=== PATIENT | female | born 1955 | race Caucasian/White ===

== ENCOUNTER → 2016-12-10 | Outpatient (CLI) | payer BC ==
[~2016-12-10] MED LIST: DILT180C53 PO; HYG/25 PO; PARO20TA PO; [UNRECOGNIZED DRUG - OTHER] PO; [UNRECOGNIZED DRUG - OTHER] PO
--- NOTE | 2016-12-11 08:01 | MAMMOGRAPHY REPORT ---
BILATERAL DIGITAL SCREENING MAMMOGRAM TOMOSYNTHESIS WITH CAD: 12/10/2016 CLINICAL HISTORY: Routine screening examination. TECHNIQUE: Breast tomosynthesis in addition to standard 2D mammography was performed. Current study was also evaluated with a Computer Aided Detection (CAD) system. COMPARISON: Comparison is made to exams dated: 12/08/2015 mammogram, 12/01/2014 mammogram, 11/30/2013 m ammogram, and 11/28/2012 mammogram - [facility]. BREAST COMPOSITION: There are scattered areas of fibroglandular density in both breasts. FINDINGS: There are a few stable benign-appearing microcalcifications in the breasts. Stable asymme try in the 12:00 anterior left breast and a stable intramammary lymph node in the upper outer seed district sales manager ior right breast. No suspicious mass, architectural distortion or cluster of suspicious microcalcif ications is seen. IMPRESSION: ACR BI-RADS CATEGORY 1: NEGATIVE There is no mammographic evidence of malignancy. A 1 year screening mammogram is recommended. The p atient will receive written notification of the results. Approximately 10% of breast cancers are not detected with mammography. A negative mammographic repor t should not delay biopsy if a clinically suggestive mass is present. Malgorzata Ibarra M.D. ay/:12/10/2016 21:32:13 Celebrity Manager: Brisa JAIN)(M), [facility] letter sent: Normal 1/2 BI-RADS Code: ACR BI-RADS Category 1: Negative
== END | disposition home or self-care (01) ==
LOC: C.MAMM 08:56
PROVIDERS: ATTEND Obstetrics & Gynecology
DX: Z12.31 Encounter for screening mammogram for malignant neoplasm of breast (principal)

== ENCOUNTER 2017-02-05 11:04 | Emergency (ER) | payer BC ==
[~2017-02-05] VITALS: Ht 165.1 cm; Wt 73.1 kg
[~2017-02-05 11:04] MED LIST changes: -HYG/25 PO
[2017-02-05 11:08] VITALS: TEMP 36.6; Ht 165.1 cm; Wt 73.1 kg
[2017-02-05] MEDS ORDERED: SODIUM CHLORIDE 0.9% 1000ML 1,000 ML IV STA (11:28)
[2017-02-05 11:59] LABS: BASO % 0.4 %; BASO ABS # 0.02 K/uL (0-0.2); COMPLETE YES; EOS % 1.9 %; HEMATOCRIT 40.6 % (37-47); IG% 0.2 %; LYMPH ABS # 1.71 K/uL (1.2-3.4); MEAN CELL VOLUME 93.5 fL (80-100); MEAN CORPUSCULAR HEMOGLOBIN 32.7 pg (25-34); MEAN PLATELET VOLUME 10.3 fL (7.4-10.4); MONO % 5.8 %; NEUT % 61.7 %; PLATELET COUNT 261 K/uL (130-400); RED BLOOD COUNT 4.34 M/uL (4.2-5.4)
[2017-02-05] MEDS ORDERED: HYG/25 PO (12:02)
[2017-02-05 12:08] LABS: PARTIAL THROMBOPLASTIN RATIO 1.3; PROTHROMBIN TIME (PATIENT) 10.7 SECONDS (9.0-12.0)
--- NOTE | 2017-02-05 12:08 | DIAGNOSTIC IMAGING REPORT ---
SINGLE VIEW CHEST CLINICAL HISTORY: Generalized weakness. Change in mental status. FINDINGS: An AP, portable, upright chest radiograph is compared to study dated 01/04/2013. The examination is degraded by portable technique and patient rotation. The cardiomediastinal silhouette is unremarkable. The lungs and pleural spaces are clear. No pneumothorax is seen. The bony thorax is grossly intact. IMPRESSION: No active disease in the chest. Electronically signed by: Toro Thompson M.D. 02/05/2017 12:06 PM Dictated Date/Time: 02/05/2017 12:05 PM
[2017-02-05 12:14] LABS: URINE APPEARANCE CLEAR (CLEAR); URINE BILIRUBIN NEG (NEG); URINE COLOR YELLOW; URINE EPITHELIAL CELL AUTO 0-5 /lpf (0-5); URINE NITRITE NEG (NEG); URINE SPECIFIC GRAVITY 1.011 (1.000-1.030); UROBILINOGEN NEG (NEG); ZZUR CULT IF INDIC CLEAN CATCH NO
[2017-02-05 12:19] LABS: ALT/SGPT 28 U/L (12-78); AST/SGOT 20 U/L (15-37); BLOOD UREA NITROGEN 21 mg/dl (7-18); BUN/CREATININE RATIO 19.4 (10-20); CALCIUM 8.9 mg/dl (8.5-10.1); CARBON DIOXIDE 31 mmol/L (21-32); CHLORIDE 101 mmol/L (98-107); GLUCOSE 93 mg/dl (70-99); MAGNESIUM 2.1 mg/dl (1.8-2.4); POTASSIUM 3.3 mmol/L (3.5-5.1); SODIUM 138 mmol/L (136-145)
[2017-02-05 12:23] LABS: MANUAL MICROSCOPIC REQUIRED? NO; REVIEW REQ? NO
[2017-02-05 12:28] LABS: ALKALINE PHOSPHATASE 73 U/L (45-117); CKMB/CK RATIO 1.2 (0-3.0)
--- NOTE | 2017-02-05 13:16 | DIAGNOSTIC IMAGING REPORT ---
CT HEAD WITHOUT CONTRAST (CT) CLINICAL HISTORY: Altered mental status, weakness. Nausea. "FEELS LIKE MY HEAD IS GOING TO EXPLODE" COMPARISON STUDY: No previous studies for comparison. TECHNIQUE: Axial CT of the brain is performed from the vertex to the skull base. IV contrast was not administered for this examination. CT DOSE: 638.56 mGycm FINDINGS: No intra or extra-axial mass lesions are visualized. There is no CT evidence of acute cortical infarction. There is no evidence of midline shift. There is no acute hemorrhage. No calvarial fractures are visualized. There are minor white matter hypodensities likely on a small vessel basis. There is no evidence of pathologic ventricular dilatation. There is no evidence of acute sinusitis IMPRESSION: No acute intracranial findings Electronically signed by: Pete Whittaker M.D. 02/05/2017 1:15 PM Dictated Date/Time: 02/05/2017 1:14 PM
--- NOTE | 2017-02-05 13:32 | EMERGENCY ROOM VISIT NOTE ---
History Report prepared by Melchor: Deuce Peralta Under the Supervision of: Dr. Moses Lemus D.O. First contact with patient: 11:28 Chief Complaint: HYPOTENSION Stated Complaint: LOW BLOOD PRESSURE, ASKEW, HEAVY CHEST, NAUSEA History of Present Illness The patient is a 61 year old female who presents to the Emergency Room with complaints of persistent dizziness that started last week. She says that on the first onset of the dizziness, she would feel faint especially upon standing up. The patient notes that a persistent headache then started a few days ago, and she has been checking her blood pressure, which has been lower than usual. This morning, the patient woke up and felt like vomiting. She also notes some hand numbness. Last night, the patient could not sleep well due to the headache as well as some chest heaviness. She called her primary care physician, who scheduled an appointment with the patient. However, her physician called back and said to come here for evaluation. The patient has been taking Tylenol for the headache, with minimal relief. She denies any fevers, abdominal pain, or cough. The patient adds that she has been on a low carbohydrate diet for the past 3 months, and has not felt any of these symptoms until last week. Source of History: patient Onset: Last week Position: other (global - dizziness) Timing: other (persistent) Associated Symptoms: + headache, + numbness (in hands), No abdominal pain, No cough, No fevers Note: Associated symptoms: Low blood pressure, chest heaviness, felt like vomiting. Review of Systems See HPI for pertinent positives & negatives. A total of 10 systems reviewed and were otherwise negative. Past Medical & Surgical Medical Problems: (1) HTN (hypertension) Family History Diabetes mellitus Heart disease Hypertension Kidney disease Seizures Social History Smoking Status: Never Smoker Alcohol Use: none Marital Status: Housing Status: lives with family Occupation Status: employed Current/Historical Medications Scheduled Chlorthalidone (Hygroton), 25 MG PO DAILY Allergies Coded Allergies: Latex1 -Allergic Contact Dermititis (Verified Allergy, Unknown, LOCALIZED RASH, 02/05/17) Penicillins (Verified Allergy, Unknown, 02/05/17) Sulfa Antibiotics (Unverified Allergy, Unknown, rash, 02/05/17) Sulfamethoxazole w/Trimethoprim (Unverified Allergy, Unknown, UNKNOWN, 02/05) Physical Exam Vital Signs Date Time Temp Pulse Resp B/P Pulse Ox O2 Delivery O2 Flow Rate FiO2 02/05/17 14:02 54 20 110/72 99 02/05/17 13:14 54 18 119/67 99 Room Air 02/05/17 12:06 56 02/05/17 11:41 60 107/65 97 Room Air 69 118/72 66 106/73 02/05/17 11:08 36.6 63 18 116/76 99 Room Air Physical Exam CONSTITUTIONAL/VITAL SIGNS: Reviewed / noted above. GENERAL: Non-toxic in appearance. INTEGUMENTARY: Warm, dry, and [place]. HEAD: Normocephalic. EYES: without scleral icterus or trauma. ENT/OROPHARYNX: clear and moist. LYMPHADENOPATHY/NECK: Is supple without lymphadenopathy or meningismus. RESPIRATORY: Lungs clear and equal. CARDIOVASCULAR: Regular rate and rhythm. GI/ABDOMEN: Soft and nontender. No organomegaly or pulsatile mass. No rebound or guarding. Normal bowel sounds. EXTREMITIES: Warm and well perfused. BACK: No CVA tenderness. NEUROLOGICAL: Intact without focal deficits. PSYCHIATRIC: normal affect. MUSCULOSKELETAL: Normally developed with good muscle tone. Medical Decision & Procedures ER Provider Diagnostic Interpretation: Radiology results as stated below per my review and radiologist interpretation: CT HEAD WITHOUT CONTRAST (CT) CLINICAL HISTORY: Altered mental status, weakness. Nausea. "FEELS LIKE MY HEAD IS GOING TO EXPLODE" COMPARISON STUDY: No previous studies for comparison. TECHNIQUE: Axial CT of the brain is performed from the vertex to the skull base. IV contrast was not administered for this examination. CT DOSE: 638.56 mGycm FINDINGS: No intra or extra-axial mass lesions are visualized. There is no CT evidence of acute cortical infarction. There is no evidence of midline shift. There is no acute hemorrhage. No calvarial fractures are visualized. There are minor white matter hypodensities likely on a small vessel basis. There is no evidence of pathologic ventricular dilatation. There is no evidence of acute sinusitis IMPRESSION: No acute intracranial findings Electronically signed by: Pete Whittaker M.D. 02/05/2017 1:15 PM Dictated Date/Time: 02/05/2017 1:14 PM SINGLE VIEW CHEST CLINICAL HISTORY: Generalized weakness. Change in mental status. FINDINGS: An AP, portable, upright chest radiograph is compared to study dated 01/04/2013. The examination is degraded by portable technique and patient rotation. The cardiomediastinal silhouette is unremarkable. The lungs and pleural spaces are clear. No pneumothorax is seen. The bony thorax is grossly intact. IMPRESSION: No active disease in the chest. Electronically signed by: Toor Thompson M.D. 02/05/2017 12:06 PM Dictated Date/Time: 02/05/2017 12:05 PM Laboratory Results 02/05/17 11:40 Red Blood Count 4.34, Mean Corpuscular Volume 93.5, Mean Corpuscular Hemoglobin 32.7, Mean Corpuscular Hemoglobin Concent 35.0, Mean Platelet Volume 10.3, Neutrophils (%) (Auto) 61.7, Lymphocytes (%) (Auto) 30.0, Monocytes (%) (Auto) 5.8, Eosinophils (%) (Auto) 1.9, Basophils (%) (Auto) 0.4, Neutrophils # (Auto) 3.52, Lymphocytes # (Auto) 1.71, Monocytes # (Auto) 0.33, Eosinophils # (Auto) 0.11, Basophils # (Auto) 0.02 02/05/17 11:40 Test 02/05/17 11:40 02/05/17 11:50 White Blood Count 5.70 K/uL (4.8-10.8) Red Blood Count 4.34 M/uL (4.2-5.4) Hemoglobin 14.2 g/dL (12.0-16.0) Hematocrit 40.6 % (37-47) Mean Corpuscular Volume 93.5 fL (80-100) Mean Corpuscular Hemoglobin 32.7 pg (25-34) Mean Corpuscular Hemoglobin Concent 35.0 g/dl (32-36) Platelet Count 261 K/uL (130-400) Mean Platelet Volume 10.3 fL (7.4-10.4) Neutrophils (%) (Auto) 61.7 % Lymphocytes (%) (Auto) 30.0 % Monocytes (%) (Auto) 5.8 % Eosinophils (%) (Auto) 1.9 % Basophils (%) (Auto) 0.4 % Neutrophils # (Auto) 3.52 K/uL (1.4-6.5) Lymphocytes # (Auto) 1.71 K/uL (1.2-3.4) Monocytes # (Auto) 0.33 K/uL (0.11-0.59) Eosinophils # (Auto) 0.11 K/uL (0-0.5) Basophils # (Auto) 0.02 K/uL (0-0.2) RDW Standard Deviation 42.0 fL (36.4-46.3) RDW Coefficient of Variation 12.2 % (11.5-14.5) Immature Granulocyte % (Auto) 0.2 % Immature Granulocyte # (Auto) 0.01 K/uL (0.00-0.02) Prothrombin Time 10.7 SECONDS (9.0-12.0) Prothromb Time International Ratio 1.0 (0.9-1.1) Activated Partial Thromboplast Time 32.9 SECONDS (21.0-31.0) Partial Thromboplastin Ratio 1.3 Anion Gap 6.0 mmol/L (3-11) Est Creatinine Clear Calc Drug Dose 54.5 ml/min Estimated GFR () 63.2 Estimated GFR (Non- 54.5 BUN/Creatinine Ratio 19.4 (10-20) Calcium Level 8.9 mg/dl (8.5-10.1) Magnesium Level 2.1 mg/dl (1.8-2.4) Total Bilirubin 0.3 mg/dl (0.2-1) Direct Bilirubin 0.1 mg/dl (0-0.2) Aspartate Amino Transf (AST/SGOT) 20 U/L (15-37) Alanine Aminotransferase (ALT/SGPT) 28 U/L (12-78) Alkaline Phosphatase 73 U/L (45-117) Total Creatine Kinase 311 U/L (26-192) Creatine Kinase MB 3.6 ng/ml (0.5-3.6) Creatine Kinase MB Ratio 1.2 (0-3.0) Troponin I < 0.015 ng/ml (0-0.045) Total Protein 7.2 gm/dl (6.4-8.2) Albumin 3.7 gm/dl (3.4-5.0) Lipase 182 U/L (73-393) Thyroid Stimulating Hormone (TSH) 1.940 uIu/ml (0.300-4.500) Urine Color YELLOW Urine Appearance CLEAR (CLEAR) Urine pH 7.0 (4.5-7.5) Urine Specific [place] 1.011 (1.000-1.030) Urine Protein NEG (NEG) Urine Glucose (UA) NEG (NEG) Urine Ketones NEG (NEG) Urine Occult Blood NEG (NEG) Urine Nitrite NEG (NEG) Urine Bilirubin NEG (NEG) Urine Urobilinogen NEG (NEG) Urine Leukocyte Esterase NEG (NEG) Urine WBC (Auto) 0 /hpf (0-5) Urine RBC (Auto) 0-4 /hpf (0-4) Urine Hyaline Casts (Auto) 0 /lpf (0-5) Urine Epithelial Cells (Auto) 0-5 /lpf (0-5) Urine Bacteria (Auto) NEG (NEG) Laboratory results as stated above per my review. Medications Administered Medications (Trade) Dose Ordered Sig/Sean Route Start Time Stop Time Status Last Admin Dose Admin Sodium Chloride (Nss 1000ml) 1,000 ml @ 999 mls/hr Q1H1M STAT IV 02/05/17 11:28 02/05/17 12:28 DC 02/05/17 11:51 999 MLS/HR ECG Indication: other (dizziness) Rate (beats per minute): 58 Rhythm: sinus bradycardia Findings: T-wave inversion (Anterior) Change: no significant change (compared to January 04 2013) ED Course 1128: Ordered NSS 1000 ml @ 999 mls/hr IV. 1154: Previous medical records were reviewed. The patient was evaluated in room C5. A complete history and physical examination was performed. 1334: On reevaluation, the patient is resting comfortably. I discussed the results and findings with the patient. She verbalized agreement of the treatment plan. She was discharged home. Medical Decision Differential diagnosis: Etiologies such as benign positional vertigo, dehydration, hypovolemia, anemia, tumor, infection, hypoglycemia, electrolyte abnormalities, cardiac sources, intracerebral event, toxicologic, neurologic, as well as others were entertained. This is a 61-year-old female who presents to the ED with a chief complaint of dizziness on occasion over the last week. She also reports a headache that started over this weekend. She states that her blood pressure has been slightly low at home. This morning she felt nauseated and dizzy and came in for evaluation. She denies having any fevers or chills or recent illness. She does complain of a headache that is in the posterior aspect of the head and radiates to the top. The patient states that she has recently been on a diet with Dr. Aceves. She states that is a low-carb diet. Her vital signs are normal. Her physical exam was normal. Orthostatic vital signs are negative. EKG shows a sinus rhythm at a rate of 58. No acute injury. Chest x-ray did not show acute disease. A CT scan the brain did not show acute disease. CBC and complete metabolic panel are unremarkable. BUN was 21. Urine did not show infection or ketones. TSH was normal. The patient was treated with IV fluids. She did not want pain medication. She is felt to be stable for discharge and outpatient follow-up. Impression Primary Impression: Dizziness Additional Impressions: Dehydration Headache Scribe Attestation The scribe's documentation has been prepared under my direction and personally reviewed by me in its entirety. I confirm that the note above accurately reflects all work, treatment, procedures, and medical decision making performed by me. Departure Information Dispostion Home / Self-Care Referrals Rene Heath M.D. (PCP) Patient Instructions Dizziness Fainting Poss Causes, [facility] Additional Instructions Blood work suggests that you're slightly dehydrated. Increase daily fluid intake. Follow-up with your family doctor for recheck in 1-4 days. Return for worsening or new concerns. Problem Qualifiers
[2017-02-05 14:02] VITALS: BP 110/72; PULSE 54; O2SAT 99
== END 2017-02-05 14:03 | disposition home or self-care (01) ==
LOC: C.EDB 11:10 → C.EDC 14:03
DX: R42 Dizziness and giddiness (principal); E86.0 Dehydration; R51 Headache; I10 Essential (primary) hypertension; Z83.3 Family history of diabetes mellitus; Z82.49 Family history of ischemic heart disease and other diseases of the circulatory system; Z82.0 Family history of epilepsy and other diseases of the nervous system; Z79.899 Other long term (current) drug therapy

== ENCOUNTER → 2017-09-11 | Outpatient (CLI) | payer BC ==
[~2017-09-11] MED LIST changes: -DILT180C53 PO; +HYG/25 PO; -PARO20TA PO; -[UNRECOGNIZED DRUG - OTHER] PO; -[UNRECOGNIZED DRUG - OTHER] PO
--- NOTE | 2017-09-11 09:19 | DIAGNOSTIC IMAGING REPORT ---
(RENAL)RETROPERITON COMP HISTORY: 62 years-old Female URINARY INCONTINENCE acute right lower quadrant tenderness with hematuria COMPARISON: None available TECHNIQUE: Multiple real-time sonographic images of the kidneys and urinary bladder were obtained assessing grayscale appearance and color flow FINDINGS: The right kidney measures 9.5 cm in length and demonstrates no renal calculi or hydronephrosis. There are several right-sided renal cysts noted, largest of which measures 1.3 cm within the region of the renal sinus which may reflect a renal sinus cyst. Cortical medullary differentiation on the right is within normal limits. The left kidney measures up to 10.7 cm in length and also demonstrates multiple cysts, largest of which measures 1.1 cm within the superior pole. Only the right ureteral jet is documented. Urinary bladder is partially collapsed. The study is mildly limited secondary to bowel gas. IMPRESSION: 1. Limited study secondary to bowel gas. No renal calculi or hydronephrosis. 2. Bilateral renal cysts. 3. Partially collapsed urinary bladder. The above report was generated using voice recognition software. It may contain grammatical, syntax or spelling errors. Electronically signed by: Oneal Tamez M.D. 09/11/2017 9:18 AM Dictated Date/Time: 09/11/2017 9:15 AM
== END | disposition home or self-care (01) ==
LOC: C.ULTR 07:36
PROVIDERS: ATTEND Family Medicine
DX: R31.9 Hematuria, unspecified (principal); S76.011A Strain of muscle, fascia and tendon of right hip, initial encounter; X58.XXXA Exposure to other specified factors, initial encounter; I10 Essential (primary) hypertension; R32 Unspecified urinary incontinence

== ENCOUNTER → 2017-10-09 | Outpatient (CLI) | payer OTHER | END | disposition home or self-care (01) | LOC: C.PAPS 14:03 | PROVIDERS: ATTEND Obstetrics & Gynecology | DX: Z01.419 Encounter for gynecological examination (general) (routine) without abnormal findings (principal); Z78.0 Asymptomatic menopausal state ==

== ENCOUNTER → 2017-12-12 | Outpatient (CLI) | payer OTHER ==
--- NOTE | 2017-12-12 15:06 | MAMMOGRAPHY REPORT ---
BILATERAL DIGITAL SCREENING MAMMOGRAM TOMOSYNTHESIS WITH CAD: 12/12/2017 CLINICAL HISTORY: Routine screening. Patient has no complaints. TECHNIQUE: Breast tomosynthesis in addition to standard 2D mammography was performed. Current study was also evaluated with a Computer Aided Detection (CAD) system. COMPARISON: Comparison is made to exams dated: 12/10/2016 mammogram, 12/08/2015 mammogram, 12/01/2014 mesha mogram, 11/30/2013 mammogram, 11/28/2012 mammogram, and 11/23/2011 mammogram - [facility]. BREAST COMPOSITION: There are scattered areas of fibroglandular density in both breasts. FINDINGS: No suspicious masses, calcifications, or areas of architectural distortion are noted in ei ther breast. There has been no significant interval change compared to prior exams. Circumscribed be nign-appearing mass in the right upper outer quadrant is stable dating back to at least the 2008 exam and likely represents an intramammary lymph node. A few scattered bilateral benign-appearing calcif ications are again noted. IMPRESSION: ACR BI-RADS CATEGORY 2: BENIGN There is no mammographic evidence of malignancy. A 1 year screening mammogram is recommended. The pa tient will receive written notification of the results. Approximately 10% of breast cancers are not detected with mammography. A negative mammographic report should not delay biopsy if a clinically suggestive mass is present. Sil Serrano M.D. /:12/12/2017 10:05:56 Route [employer]: Naomi Hunter, [facility] letter sent: Normal 1/2 BI-RADS Code: ACR BI-RADS Category 2: Benign
== END | disposition home or self-care (01) ==
LOC: C.MAMM 08:52
PROVIDERS: ATTEND Obstetrics & Gynecology
DX: Z12.31 Encounter for screening mammogram for malignant neoplasm of breast (principal)

== ENCOUNTER → 2018-04-28 | Outpatient (CLI) | payer OTHER ==
--- NOTE | 2018-04-28 07:55 | DIAGNOSTIC IMAGING REPORT ---
ABDOMEN LIMITED (US) HISTORY: 63 years-old Female ABD PAIN acute right upper quadrant abdominal pain COMPARISON: Renal ultrasound 09/11/2017 TECHNIQUE: Multiple real-time sonographic images of the abdominal right upper quadrant were obtained assessing grayscale appearance, and color flow FINDINGS: Visualized pancreas is unremarkable. Hypoechoic lesion with increased through transmission involves left hepatic lobe, 0.9 cm suggesting hepatic cyst. Liver is otherwise unremarkable without intrahepatic biliary ductal dilation. Gallbladder is unremarkable without wall thickening, pericholecystic fluid collections or shadowing cholelithiasis. Common bile duct is normal, 4 mm. 1.0 cm cyst of the interpolar right kidney. Additionally, there is an ill-defined area of decreased echogenicity about the superior pole right kidney without definite internal flow measuring 1.8 cm in greatest dimension. IMPRESSION: 1. 1.8 cm area of ill-defined decreased echogenicity about the superior pole right kidney may represent heterogeneous parenchyma with focal renal lesion also within the differential. Further evaluation with CT renal mass protocol recommended. 2. No cholelithiasis or acute cholecystitis. 3. No biliary ductal dilation. The above report was generated using voice recognition software. It may contain grammatical, syntax or spelling errors. Electronically signed by: Oneal Tamez M.D. 04/28/2018 7:53 AM Dictated Date/Time: 04/28/2018 7:34 AM
== END | disposition home or self-care (01) ==
LOC: C.ULTR 06:56
PROVIDERS: ATTEND Pediatrics
DX: R10.9 Unspecified abdominal pain (principal)

== ENCOUNTER → 2018-05-09 | Outpatient (CLI) | payer OTHER ==
--- NOTE | 2018-05-09 16:59 | DIAGNOSTIC IMAGING REPORT ---
CT SCAN OF THE ABDOMEN AND PELVIS WITHOUT IV CONTRAST CLINICAL HISTORY: Hematuria. Lower abdominal pain. Urinary frequency. COMPARISON STUDY: Abdominal ultrasound dated 04/28/2018. Renal ultrasound dated 09/11/2017. TECHNIQUE: CT scan of the abdomen and pelvis is performed from the lung bases to the proximal femora. Images are reviewed in the axial, sagittal, and coronal planes. IV contrast was not administered for this examination as per the referring clinician. A dose lowering technique was utilized adhering to the principles of ALARA. CT DOSE: 1257.70 mGy.cm FINDINGS: Lung bases: The heart is normal in size and without pericardial effusion. The lung bases are clear. Liver: The unenhanced liver is normal in size, contour, and attenuation. There is no intrahepatic biliary ductal dilatation. There is a 12 mm cyst in the right hepatic lobe. Gallbladder: Unremarkable. Spleen: Normal in size and attenuation. Pancreas: Unremarkable. Adrenal glands: Unremarkable. Kidneys: The unenhanced kidneys are normal in size. There is mild left hydronephrosis. There is marked dilatation of the left ureter, which is greatest distally. The distal ureter measures up to 2.0 cm in diameter. No obstructing lesion is clearly identified. There is no right-sided hydronephrosis and the right ureter is normal in caliber. No renal calculi are identified. There is no evidence of contour deforming renal mass lesion. Parapelvic cysts are noted on the left. A retroaortic left renal vein is incidentally noted. Abdominal vasculature: The abdominal aorta is normal in course and caliber. Bowel: The small bowel and colon are normal in course and caliber. The appendix is normal as imaged. Peritoneum: There is no intraperitoneal free air or abdominal ascites. Lymphadenopathy: None. Pelvic viscera: The bladder is normal as visualized. The uterus and adnexa are normal as imaged. Skeletal structures: No lytic or blastic lesions are seen. IMPRESSION: 1. There are no acute infectious or inflammatory findings in the abdomen or pelvis. 2. No renal calculi are identified. 3. There is mild left sided hydronephrosis, with significant dilatation of the left ureter. This is greatest in mid to distally, with no clear obstructing lesion identified. Differential considerations include a primary megaureter or possibly distal ureteral stricture. There is no clear evidence of obstructing urothelial lesion on these unenhanced images; however, this would be impossible to exclude. The degree of dilatation is atypical for a recently passed kidney stone. Follow-up with urology is recommended. 4. There is no right-sided hydronephrosis. 5. Additional findings as above. Electronically signed by: Toro Thompson M.D. 05/09/2018 4:58 PM Dictated Date/Time: 05/09/2018 4:46 PM
== END | disposition home or self-care (01) ==
LOC: C.CTS 16:38
PROVIDERS: ATTEND Physician Assistant
DX: R31.9 Hematuria, unspecified (principal); R10.9 Unspecified abdominal pain; R35.0 Frequency of micturition